=== PATIENT | male | born 1935 | race Caucasian/White ===

== ENCOUNTER 2018-01-17 13:24 | Outpatient (CLI) | payer MEDICARE, BC ==
[2018-01-17 15:04] LABS: Anion Gap 9 mmol/L (10-20); BUN (Urea Nitrogen) 21 mg/dL (8.4-25.7); Calc. Creatinine Clearance 0 mL/min (70-130); Calcium 9.3 mg/dL (7.8-10.44); Carbon Dioxide 30 mmol/L (23-31); Chloride 103 mmol/L (98-107); Estimated GFR-MDRD 90; Glucose 109 mg/dL (83-110); Potassium 3.3 mmol/L (3.5-5.1); Sodium 139 mmol/L (136-145)
[2018-01-17 15:25] LABS: Hemoglobin 15.5 g/dL (14.0-18.0); Mean Corpuscular HGB CONC 35.2 g/dL (32.0-36.0); Mean Corpuscular Hemoglobin 33.6 pg (27.0-31.0); Mean Corpuscular Volume 95.5 fL (78.0-98.0); Mean Platelet Volume 6.9 fL (7.4-10.4); Platelet Count 264 thou/uL (130-400); RBC Distribution Width 11.4 % (11.5-14.5); White Blood Cell (WBC) Count 8.7 thou/uL (4.8-10.8)
[2018-01-17 15:32] LABS: PTT 23.3 SEC (22.9-36.1); Prothrombin Time 13.7 SEC (12.0-14.7)
== END 2018-01-17 13:25 | disposition home or self-care (01) ==
LOC: LABBT 13:24
PROVIDERS: ATTEND Neurological Surgery
DX: Z01.812 Encounter for preprocedural laboratory examination (principal); M48.061 Spinal stenosis, lumbar region without neurogenic claudication
CPT/HCPCS: 80048; 85027; 85610; 85730

== ENCOUNTER 2018-01-24 05:36 | Observation (INO) | payer MEDICARE, BC ==
[2018-01-17 13:55] VITALS: BMI 27.2
--- NOTE | 2018-01-24 00:56 | HP ---
CHIEF COMPLAINT: Low back pain. HISTORY OF PRESENT ILLNESS: Mr. Gibson is an 82-year-old man who presents with symptoms of neurogenic claudication. These symptoms have been coming on for the past several years and it is getting worse in his right leg. He has trouble walking any length of distance because of the pain in his legs and the legs feel better with sitting, resting, or bending forward. He bends forward when standing upright and cannot hold good posture for more than a minute. He has had physical therapy and [facility] in [place] that did not seem to give any permanent relief. REVIEW OF SYSTEMS: A 10-point review of systems has been completed and is negative, otherwise stated above in HPI. PAST MEDICAL HISTORY: Significant of prostate cancer, hyperthyroidism, and hypertension. PAST SURGICAL HISTORY: Thyroidectomy, prostatectomy in 1995, tonsillectomy in 1957. HOSPITALIZATIONS: Positive kidney stones in 1970, prostate surgery in 1995 with a thyroidectomy in 2006. FAMILY HISTORY: Father is . Mother is with hypertension and stroke. Siblings are alive and has hypertension. SOCIAL HISTORY: Patient is a nonsmoker. He is retired, with 2 children. MEDICATIONS: Levothyroxine, valsartan, amlodipine besylate, gabapentin. ALLERGIES: No known drug allergies. PHYSICAL EXAMINATION: HEENT: Head normocephalic, atraumatic. Hearing is intact. Moist mucous membranes. NECK: Trachea is midline. No masses are noted. EYES: Pupils are equal, round, reactive to light. Extraocular movements are intact. Sclerae is not injected, nonicterus. PSYCHIATRIC: Normal mood and affect. MUSCULOSKELETAL: No cyanosis or clubbing noted. Intact pedal pulse bilaterally. CARDIOVASCULAR: Regular rate and rhythm with S1, S2. MUSCULOSKELETAL: 5/5 strength in bilateral iliopsoas, quadriceps, hamstrings, right tibialis anterior and extensor hallucis longus. Sensory deficits in the right L4 and L5 dermatome nontender to palpation on the midline spine. NEUROLOGIC: Awake, alert, oriented x3. Cranial nerves II through XII are grossly intact. Speech is fluent. Answers questions appropriately. Walks, bent forward with gait and station. ASSESSMENT: Spinal stenosis, lumbar region, neurogenic claudication. PLAN: Dr. Siddiqui has offered a lumbar laminectomy to relief of the nerve pain in his legs. We have discussed the risks, benefits, and possible complications of surgery. The risks that have been discussed include but are not limited to bleeding, infection, CSF leak, nerve damage, weakness, incontinence, cauda equina injury, arachnoiditis, paralysis, ventilator dependence, wheelchair dependence, loss of vision, cardiopulmonary complications of anesthesia or long-term complications discussed include but are not limited to degeneration of surrounding disks then the need for further surgery. Patient understands the risks and is willing to proceed with surgery. TRISTIAN
[2018-01-24] MEDS ORDERED: CEFAZOLIN/Water 2 GM/20 ML SYRINGE ONE (06:00)
[2018-01-24] MEDS ORDERED: Thrombin 5000 UNITS/5 ML VIAL ONE (06:19)
[2018-01-24] MEDS ORDERED: Bupivacaine HCl 0.5%/Epinephrine 1:200,000/PF 30 ml Vial ONE (06:19)
[2018-01-24] MEDS ORDERED: Sodium Chloride 0.9% 10 ML ONE (06:19)
[2018-01-24] MEDS ORDERED: Fentanyl 100 MCG/2 ML VIAL ONE ×3 (06:57→10:20)
[2018-01-24] MEDS ORDERED: diphenhydrAMINE 25 MG CAP PO PRN (10:46)
[2018-01-24] MEDS ORDERED: diphenhydrAMINE 50 MG/ML VIAL IVP PRN (10:46)
[2018-01-24] MEDS ORDERED: Fleet Enema 133 ML BOT PR PRN (10:46)
[2018-01-24] MEDS ORDERED: Morphine 4 MG/ML VIAL SLOW IVP PRN (10:46)
[2018-01-24] MEDS ORDERED: Mag-Al 1200 mg/1200 mg/30 ML UDCUP PO PRN (10:46)
[2018-01-24] MEDS ORDERED: Promethazine 25 MG TAB PO PRN (10:46)
[2018-01-24] MEDS ORDERED: Acetaminophen 325 MG TAB PO PRN (10:46)
[2018-01-24] MEDS ORDERED: Acetaminophen/Codeine 30-300mg Tablet PO PRN (10:46)
[2018-01-24] MEDS ORDERED: Zolpidem Tartrate 5 MG TAB PO PRN (10:46)
[2018-01-24] MEDS ORDERED: Milk Of Magnesia 30 ML UDCUP PO PRN (10:46)
[2018-01-24] MEDS ORDERED: traMADol HCl 50 MG TAB PO PRN (10:46)
[2018-01-24] MEDS ORDERED: Bisacodyl 10 MG SUPP PR PRN (10:46)
[2018-01-24] MEDS ORDERED: tiZANidine HCl 4 MG TAB PO PRN (10:46)
[2018-01-24] MEDS ORDERED: Meperidine HCl/PF 25 MG/ML VIAL SLOW IVP PRN (10:58)
[2018-01-24] MEDS ORDERED: Promethazine HCl 25 MG/ML VIAL SLOW IVP PRN (10:58)
[2018-01-24] MEDS ORDERED: Promethazine HCl 25 MG/ML VIAL IM PRN (10:58)
[2018-01-24] MEDS ORDERED: Morphine Sulfate 2 MG/ML SYRINGE SLOW IVP PRN (10:58)
[2018-01-24] MEDS ORDERED: Ondansetron HCl/PF 4 MG/2 ML Vial IVP PRN (10:58)
[2018-01-24] MEDS ORDERED: HYDROmorphone 2 MG/ML VIAL SLOW IVP PRN (10:58)
--- NOTE | 2018-01-24 12:24 | OP ---
DATE OF PROCEDURE: 01/24/2018 SURGEON: Kandis Siddiqui M.D. SADDLE CUTTER: Kierra Luo PA-C. PREOPERATIVE INDICATION: Treat pain, prevent neurological deterioration. PREOPERATIVE DIAGNOSES: Multilevel lumbar stenosis with foraminal stenosis, multilevel radiculopathy , neurogenic claudication. POSTOPERATIVE DIAGNOSES: Multilevel lumbar stenosis with foraminal stenosis, multilevel radiculopath y, neurogenic claudication. OPERATIVE PROCEDURE: Decompressive laminectomy, medial facetectomy, foraminotomy, L2-3, L3-4, L4-5, far lateral foraminotomy L4-L5, right side. PREOPERATIVE MEDICATION: Ancef 2 grams IV. DRAIN NUMBER: Zero. DRAIN TYPE: None. OPERATIVE DICTATION: The patient was brought to the operating room. General endotracheal anesthesia was induced. The patient was positioned prone on the operating table with his chest and hips suppor kosta by gel-filled chest rolls. A lateral fluoro radiograph was used to plan our incision. The lumba r skin was sterilely prepped and draped. We opened with a 10-blade knife and controlled bleeding wit h bipolar and monopolar cautery. We used monopolar cautery to dissect through subcutaneous tissues t o thoracodorsal fascia. We incised the fascia in the midline and reflected the paraspinal muscles of f the spinous process and lamina of L2, L3, L4, L5. A self-retaining retractor was placed and a late ral fluoro radiograph confirmed the levels upon which we were operating. We then used an Adson ronge ur to remove the inferior portion of the spinous process of L2, spinous process of L3, L4, and the schofield perior portion of L5. Using Kerrison rongeur, we fashioned a laminectomy down the midline. We widen ed our laminectomy defect until we were flushed with the L3, L4, L5 pedicles. We performed foraminot omies over the exiting L2, L3, L4, and L5 nerve roots. The right-sided L4 nerve root was severely co mpressed in the foramen. Here we took our dissection lateral to the pars. We drilled away the super ior portion of the facet joint at L4-L5 and the superior articular process of L5. In this fashion fr om a lateral approach and medial approach, we performed a wide foraminotomy over the exiting L4 nerve root until Campbell ball could pass through the foramen without impingement. We then waxed the bone e dges. We controlled ventral epidural bleeding with gentle bipolar cautery. We irrigated copiously w ith bacitracin irrigation. We infused local anesthetic in the paraspinal muscles. We closed the wou nd in anatomic layers. We applied a sterile dressing. This was a clean case and no contamination.
[2018-01-24] MEDS ORDERED: PROPOFOL 200 MG/20 ML VIAL ONE (12:38)
[2018-01-24] MEDS ORDERED: Dexamethasone 20 MG/5 ML VIAL ONE (12:38)
[2018-01-24] MEDS ORDERED: ePHEDrine/0.9% NaCl/PF SYRINGE 50 mg/10 ml ONE (12:38)
[2018-01-24] MEDS ORDERED: Lidocaine 1% PF 5 ML VIAL ONE (12:38)
[2018-01-24] MEDS ORDERED: Metoclopramide HCl 10 MG/2 ML VIAL ONE (12:38)
[2018-01-24] MEDS ORDERED: Glycopyrrolate 0.2 MG/ML 5 ML SYRINGE ONE (12:38)
[2018-01-24] MEDS ORDERED: Ondansetron HCl/PF 4 MG/2 ML Vial ONE (12:38)
[2018-01-24] MEDS ORDERED: Prevnar 13-Val Conj/PF 0.5 ML SYRINGE IM ONE (13:45)
[2018-01-24] MEDS: Sodium Chloride 0.9% 1,000 ML IV SCH (14:25)
[2018-01-24] MEDS: CEFAZOLIN/Water 2 GM/20 ML SYRINGE SLOW IVP SCH ×2 (14:31→22:12)
[2018-01-24] MEDS: Acetaminophen/Codeine 30-300mg Tablet PO PRN (17:18)
[2018-01-25] MEDS: Sodium Chloride 0.9% 1,000 ML IV SCH (01:52)
[2018-01-25 03:50] VITALS: TEMP 98.2
--- NOTE | 2018-01-25 07:25 | PRG ---
DATE OF SERVICE: 01/25/2018 Mr. Gibson is 1 day out from decompression at L2-3, 3-4, 4-5 with a wide foraminotomy on the right L 4 nerve root. The back is sore, but he does not complain much of leg pain this morning. He does not e that his temperature was a bit low overnight. His blood pressure was low. [facility] but did not walk in the halls. On examination, there is good L4 strength and se nsation. I do not find any other neurological deficits. Our plan is to have Mr. Gibson ambulate to day. We will Hep-Lock his IV and if he is tolerating a general diet, voiding spontaneously and safe for activities of daily living, he can be discharged.
[2018-01-25] MEDS: Acetaminophen/Codeine 30-300mg Tablet PO PRN (08:16)
[2018-01-25 08:31] VITALS: BP 122/53
== END 2018-01-25 10:06 | disposition home or self-care (01) ==
LOC: SDC 05:36 → SURG B 12:00
PROVIDERS: ADMIT Neurological Surgery; ATTEND Neurological Surgery
PROC: 01NB0ZZ Release Lumbar Nerve, Open Approach (ICD-10-PCS; principal; 2018-01-24)
DX: M48.062 Spinal stenosis, lumbar region with neurogenic claudication (principal); I10 Essential (primary) hypertension; Z79.899 Other long term (current) drug therapy
CPT/HCPCS: 63047; 63048 ×2; 76001; 96361 ×2; 96374; 96375; 96376; 97139; G0378; A4216; J0131; J0670; J1100; J2001; J2270; J2405; J2704; J2765; J3010; J3370; J3490